=== PATIENT | female | born 1990 | race Caucasian/White ===

== ENCOUNTER 2024-06-04 00:05 | Emergency (ER) | payer MEDICAID ==
[2024-06-04] MEDS: cloNIDine 0.1 MG Tab PO ONE (00:36)
== END 2024-06-04 02:00 | disposition home or self-care (01) ==
LOC: MW.ED 00:05
DX: F41.9 Anxiety disorder, unspecified (principal); I10 Essential (primary) hypertension; Z79.51 Long term (current) use of inhaled steroids; Z79.4 Long term (current) use of insulin
CPT/HCPCS: 99283; A9270; 99282